=== PATIENT | female | born 1980 | race Caucasian/White ===

== ENCOUNTER 2021-05-18 10:09 | Outpatient (CLI) | payer MEDICAID ==
[~2021-05-18 10:09] MED LIST: ALPR-624 PO; NO HOME MEDS; SUCR1TAB28 PO
== END 2021-05-18 23:59 | disposition home or self-care (01) ==
LOC: RAD 10:09
PROVIDERS: ATTEND Psychiatry & Neurology Neurology
DX: R41.3 Other amnesia (principal)
CPT/HCPCS: 95816

== ENCOUNTER 2023-01-11 10:16 | Outpatient (CLI) | payer MEDICAID | END 2023-01-11 23:59 | disposition home or self-care (01) | LOC: RAD 10:16 | PROVIDERS: ATTEND Psychiatry & Neurology Neurology | DX: R41.3 Other amnesia (principal) | CPT/HCPCS: 95819 ==